=== PATIENT | male | born 2000 | race African-American/Black ===

== ENCOUNTER 2019-03-25 11:16 | Emergency (ER) | payer OTHER, SELFPAY ==
[~2019-03-25] VITALS: Ht 175.3 cm; Wt 54.4 kg
[2019-03-25] MEDS ORDERED: methylPREDNISolone SOD SUCC PF 125 MG/2 ML VIAL. IV ONE (11:45)
[2019-03-25] MEDS ORDERED: diphenhydrAMINE 50 MG/ML VIAL IVP ONE (11:45)
[2019-03-25] MEDS ORDERED: EPINEPHrine SYRINGE 1 MG/10 ML SYRINGE IV ONE (11:45)
[2019-03-25] MEDS ORDERED: FAMOTIDINE 20 MG/2 ML VIAL IVP ONE (11:45)
[2019-03-25] MEDS ORDERED: IV NORMAL SALINE 1000ML BAG 1,000 ML IV ONE (11:45)
--- NOTE | 2019-03-25 11:59 | RAD ---
Two-view chest dated 03/25/2019. No comparison available. Clinical data indication: Chest tightness. FINDINGS: PA and lateral views of the chest were obtained. Heart and mediastinal contours are within normal limits. Lungs are clear without focal consolidation. Vascular interstitium within normal limits. No pleural effusion or pneumothorax. IMPRESSION: No acute radiographic abnormality. Electronically signed by: Yobani Colmenares MD (03/25/2019 11:56 AM) [id number]
[2019-03-25] MEDS ORDERED: EPINEPHrine 1 MG/ML VIAL IM ONE (12:00)
[2019-03-25 12:10] LABS: BASO % 0 % (0-3); EOS # 0.4 x10^3/uL (0.0-0.7); EOS % 6 % (0-3); HEMATOCRIT 47.9 % (39.0-53.0); HEMOGLOBIN 15.6 g/dL (13.0-17.5); LYMPH # 1.4 x10^3/uL (1.0-4.8); LYMPH % 18 % (24-48); MEAN CORPUSCULAR HEMOGLOBIN 29 pg (25-35); MEAN CORPUSCULAR HGB CONC 33 g/dL (31-37); MEAN CORPUSCULAR VOLUME 89 fL (79-100); MONO # 0.5 x10^3/uL (0.0-1.1); MONO % 6 % (0-9); NEUT # 5.3 x10^3uL (1.8-7.7); NEUT % 70 % (31-73); PLATELET COUNT 227 x10^3/uL (140-400); RED BLOOD COUNT 5.37 x10^6/uL (4.30-5.70); RED CELL DISTRIBUTION WIDTH 13.4 % (11.5-14.5); WHITE BLOOD COUNT 7.6 x10^3/uL (4.0-11.0)
[2019-03-25 12:23] LABS: CALCIUM 8.8 mg/dL (8.5-10.1); GFR 115.3; POTASSIUM 4.1 mmol/L (3.5-5.1)
[2019-03-25 15:00] VITALS: BP 120/60
[2019-03-25] MEDS ORDERED: PRED50TA PO (15:07)
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
== END 2019-03-25 15:39 | disposition home or self-care (01) ==
LOC: ER 11:16
DX: L29.8 Other pruritus (principal); K13.0 Diseases of lips; T39.315A Adverse effect of propionic acid derivatives, initial encounter; Z88.5 Allergy status to narcotic agent; Z91.011 Allergy to milk products; Y92.89 Other specified places as the place of occurrence of the external cause
CPT/HCPCS: 36415; 71046; 80048; 85025; 96372; 96374; 96375; 99285; J0171; J1200; J2930; J3490; J7030; 96361